=== PATIENT | female | born 1950 | race Caucasian/White ===

== ENCOUNTER 2020-05-07 15:35 | Emergency (ER) | payer MEDICARE, OTHER ==
[~2020-05-07] VITALS: Ht 154.9 cm; Wt 77.1 kg
[2020-05-07] MEDS ORDERED: VALSARTAN-HCTZ1 EACH PO (15:56)
[2020-05-07] MEDS ORDERED: LIPITOR 20 MG T20 M1 PO (15:57)
[2020-05-07] MEDS ORDERED: NORCO 5-325 TA1 EAC2 PO (17:32)
[2020-05-07 17:39] VITALS: BP 114/79
== END 2020-05-07 17:39 | disposition home or self-care (01) ==
LOC: M.ERS 15:35
DX: M25.561 Pain in right knee (principal); M25.551 Pain in right hip; M25.552 Pain in left hip; Z79.899 Other long term (current) drug therapy; Z88.0 Allergy status to penicillin; Z88.2 Allergy status to sulfonamides; Z88.8 Allergy status to other drugs, medicaments and biological substances; W18.39XA Other fall on same level, initial encounter; Y93.89 Activity, other specified; Y92.89 Other specified places as the place of occurrence of the external cause; Y99.8 Other external cause status